=== PATIENT | female | born 1940 | race Caucasian/White ===

== ENCOUNTER 2021-12-23 11:08 | Inpatient (IN) ==
[2021-12-23] MEDS ORDERED: Iopamidol - 370 500 ML MLS IVP ONE (11:24)
[2021-12-23 11:53] LABS: Hematocrit 43.9 % (35.3-44.9); Hemoglobin 14.4 g/dL (11.5-15.4); Mean Corpuscular HGB Conc 32.8 g/dL (31.6-35.5); Mean Corpuscular Hemoglobin 30.3 pg (28.0-33.3); Mean Corpuscular Volume 92.2 fL (83.0-100.0); Mean Platelet Volume 10.6 fL (9.4-12.4); Platelet Count 210 K/mcL (140-400); Red Blood Count 4.76 M/mcL (3.82-4.97); Red Cell Distribution Width 14.6 % (11.5-14.5); White Blood Count 6.3 K/mcL (4.3-11.1)
[2021-12-23 12:00] LABS: Prothrombin Time 11.4 Seconds (9.4-12.1)
[2021-12-23 12:03] LABS: Activated Partial Thrombo Time 30.4 Seconds (26.0-36.0)
[2021-12-23 12:10] LABS: Albumin 3.9 g/dL (3.5-5.7); Albumin/Globulin Ratio 1.1 (1.1-2.2); Bilirubin,Direct 0.1 mg/dL (0.0-0.2); Bilirubin,Indirect 0.6 mg/dL (0.0-1.0); Bilirubin,Total 0.7 mg/dL (0.3-1.0); Globulin 3.4 g/dL (2.4-3.5); Total Protein 7.3 g/dL (6.4-8.9)
[2021-12-23 12:10] LABS: Bilirubin,Urine Negative (Negative); Blood,Urine Negative (Negative); Clarity,Urine Clear (Clear); Color,Urine Light-Yellow (Yellow); Glucose,Urine (UA) Normal (Normal); Ketones,Urine Negative (Negative); Leukocyte Esterase,Urine Negative (Negative); Nitrite,Urine Negative (Negative); PH,Urine 5.5 pH Units (5.0-8.0); Protein,Urine Negative (Neg-Trace); Specific Gravity,Urine 1.022 (1.010-1.025); Urobilinogen,Urine Normal (Normal)
[2021-12-23 12:11] LABS: BUN/Creatinine Ratio 18 (6-26); Blood Urea Nitrogen 16 mg/dL (8-23); Calcium 9.3 mg/dL (8.6-10.3); Carbon Dioxide 27 mEq/L (23-29); Chloride 108 mEq/L (98-107); Creatine Kinase 51 Units/L (30-223); Ethanol < 10 mg/dL (Less than 10); Glucose 91 mg/dL (70-105); Osmolality,Calculated 293 (280-300); Potassium 4.3 mEq/L (3.5-5.1); Sodium 141 mEq/L (136-145); Troponin I < 0.03 ng/mL (< 0.04); eGFR For African Americans > 60 (> 60); eGFR For Non-African Americans 59 (> 60)
[2021-12-23 12:17] LABS: Amphetamine Screen,Urine Negative ng/mL (Cutoff=1000); Barbiturate Screen,Urine Negative ng/mL (Cutoff=200); Benzodiazepines Screen,Urine Negative ng/mL (Cutoff=200); Cannabinoid Screen,Urine Negative ng/mL (Cutoff = 50); Cocaine Screen,Urine Negative ng/mL (Cutoff= 300); Opiate Screen,Urine Negative ng/mL (Cutoff=300); Phencyclidine Screen,Urine Negative ng/mL (Cutoff=25)
[2021-12-23] MEDS ORDERED: Perflutren Lipid Microsphere 1.3 ML in 0.9 % Sodium Chloride 8.7 ML IVP PRN (13:54)
[2021-12-23] MEDS ORDERED: Naloxone 0.4 MG/ML INJ IVP PRN (13:57)
[2021-12-23] MEDS ORDERED: Ondansetron 4 MG/2 ML VIAL IVP PRN (13:57)
[2021-12-23] MEDS ORDERED: Aspirin Enteric Coated 325 MG Tablet PO ONE (14:26)
[2021-12-24 06:45] LABS: Estimated Average Glucose 103 mg/dl; Hemoglobin A1C 5.2 %
[2021-12-24 06:49] LABS: Albumin 3.7 g/dL (3.5-5.7); Albumin/Globulin Ratio 1.4 (1.1-2.2); Bilirubin,Direct 0.1 mg/dL (0.0-0.2); Bilirubin,Indirect 0.5 mg/dL (0.0-1.0); Bilirubin,Total 0.6 mg/dL (0.3-1.0); Chol/HDL Ratio 2.6 (0-4.9); Globulin 2.7 g/dL (2.4-3.5); Total Protein 6.4 g/dL (6.4-8.9)
[2021-12-24 06:50] LABS: Magnesium 1.9 mg/dL (1.6-2.6); Phosphorous 3.5 mg/dL (2.7-4.5)
[2021-12-24 07:18] LABS: Folate 13.7 ng/mL (3.0-16.0)
[2021-12-24] MEDS: Aspirin Enteric Coated 81 MG Tablet PO SCH (08:51)
[2021-12-24] MEDS: *HR* Enoxaparin 40 MG/0.4 ML SYRINGE SQ SCH (08:52)
[2021-12-24] MEDS ORDERED: *HR* LORazepam 2 MG/ML VIAL IVP PRN (09:35)
[2021-12-24] MEDS ORDERED: Cyanocobalamin (B-12) 1,000 MCG/ML VIAL IM ONE (12:56)
[2021-12-25] MEDS ORDERED: Cyanocobalamin (B-12) 1,000 MCG TABLET PO SCH (09:00)
[2021-12-25] MEDS: *HR* Enoxaparin 40 MG/0.4 ML SYRINGE SQ SCH (09:09)
[2021-12-25] MEDS: Aspirin Enteric Coated 81 MG Tablet PO SCH (09:09)
[2021-12-25] MEDS: lisinopriL 20 MG TABLET PO SCH (11:43)
[2021-12-26] MEDS: lisinopriL 20 MG TABLET PO SCH (08:02)
[2021-12-26] MEDS: Cyanocobalamin (B-12) 1,000 MCG TABLET PO SCH (08:03)
[2021-12-26] MEDS: *HR* Enoxaparin 40 MG/0.4 ML SYRINGE SQ SCH (08:03)
[2021-12-26] MEDS: Aspirin Enteric Coated 81 MG Tablet PO SCH (08:03)
[2021-12-26] MEDS: Acetaminophen 325 MG TABLET PO PRN (22:28)
[2021-12-27] MEDS: lisinopriL 20 MG TABLET PO SCH (07:35)
[2021-12-27] MEDS: Aspirin Enteric Coated 81 MG Tablet PO SCH (07:35)
[2021-12-27] MEDS: *HR* Enoxaparin 40 MG/0.4 ML SYRINGE SQ SCH (07:35)
[2021-12-27] MEDS: Cyanocobalamin (B-12) 1,000 MCG TABLET PO SCH (07:35)
[2021-12-28] MEDS: Acetaminophen 325 MG TABLET PO PRN (04:32)
[2021-12-28 07:03] VITALS: BP 135/80; PULSE 75; TEMP 97.8; O2SAT 96
[2021-12-28] MEDS: lisinopriL 20 MG TABLET PO SCH (07:16)
[2021-12-28] MEDS: Cyanocobalamin (B-12) 1,000 MCG TABLET PO SCH (07:16)
[2021-12-28] MEDS: *HR* Enoxaparin 40 MG/0.4 ML SYRINGE SQ SCH (07:16)
[2021-12-28] MEDS: Aspirin Enteric Coated 81 MG Tablet PO SCH (07:16)
[2021-12-28 10:28] LABS: Influenza A PCR Negative (Negative); Influenza B PCR Negative (Negative); Resp. Syncytial Virus PCR Negative (Negative); SARS-CoV-2 by PCR (In House) Negative (Negative)
== END 2021-12-28 16:13 | DRG 71 ==
LOC: EMEROOARM 11:08 → 3BNU 11:08 → SUATTDRO 14:17 → 3BNU 16:00
PROVIDERS: ADMIT Student in an Organized Health Care Education/Training Program; ATTEND Internal Medicine

== ENCOUNTER 2022-03-06 09:00 | Observation (INO) ==
[2022-03-06 09:36] LABS: Basophils % 0.2 %; Eosinophils # 0.2 K/mcL (0.0-0.6); Eosinophils % 2.8 %; Hematocrit 41.1 % (35.3-44.9); Hemoglobin 13.7 g/dL (11.5-15.4); Immature Granulocytes % 0.4 % (0-4); Lymphocytes # 2.4 K/mcL (0.6-4.6); Lymphocytes % 28.4 %; Mean Corpuscular HGB Conc 33.3 g/dL (31.6-35.5); Mean Corpuscular Hemoglobin 29.8 pg (28.0-33.3); Mean Corpuscular Volume 89.5 fL (83.0-100.0); Mean Platelet Volume 10.8 fL (9.4-12.4); Monocytes # 0.8 K/mcL (0.0-1.3); Monocytes % 9.5 %; Platelet Count 228 K/mcL (140-400); Red Blood Count 4.59 M/mcL (3.82-4.97); Red Cell Distribution Width 15.6 % (11.5-14.5); Segmented Neutrophils % 58.7 %; White Blood Count 8.6 K/mcL (4.3-11.1)
[2022-03-06 09:45] LABS: INR 1.1; Prothrombin Time 11.9 Seconds (9.4-12.1)
[2022-03-06 09:47] LABS: Activated Partial Thrombo Time 27.2 Seconds (26.0-36.0)
[2022-03-06 10:26] LABS: Alanine Aminotransferase 19 Units/L (7-52); Albumin 3.8 g/dL (3.5-5.7); Albumin/Globulin Ratio 1.2 (1.1-2.2); Alkaline Phosphatase 90 Units/L (34-104); Aspartate Amino Transferase 20 Units/L (13-39); BUN/Creatinine Ratio 15 (6-26); Bilirubin,Direct 0.2 mg/dL (0.0-0.2); Bilirubin,Indirect 0.7 mg/dL (0.0-1.0); Bilirubin,Total 0.9 mg/dL (0.3-1.0); Blood Urea Nitrogen 13 mg/dL (8-23); Calcium 9.2 mg/dL (8.6-10.3); Carbon Dioxide 25 mEq/L (23-29); Chloride 106 mEq/L (98-107); Creatine Kinase 51 Units/L (30-223); Ethanol < 10 mg/dL (Less than 10); Globulin 3.3 g/dL (2.4-3.5); Glucose 93 mg/dL (70-105); Osmolality,Calculated 286 (280-300); Potassium 3.9 mEq/L (3.5-5.1); Sodium 138 mEq/L (136-145); Total Protein 7.1 g/dL (6.4-8.9); Troponin I < 0.03 ng/mL (< 0.04)
[2022-03-06] MEDS ORDERED: Iopamidol - 370 500 ML MLS IVP ONE (10:27)
[2022-03-06] MEDS: 0.9 % Sodium Chloride 1,000 ML IVC SCH ×2 (10:35→19:05)
[2022-03-06 12:19] LABS: Bilirubin,Urine Negative (Negative); Blood,Urine Negative (Negative); Clarity,Urine Clear (Clear); Color,Urine Colorless (Yellow); Glucose,Urine (UA) Normal (Normal); Ketones,Urine Negative (Negative); Leukocyte Esterase,Urine Negative (Negative); Nitrite,Urine Negative (Negative); Protein,Urine Negative (Neg-Trace); Specific Gravity,Urine > 1.030 (1.010-1.025); Urobilinogen,Urine Normal (Normal)
[2022-03-06 13:31] LABS: Amphetamine Screen,Urine Negative ng/mL (Cutoff=1000); Barbiturate Screen,Urine Negative ng/mL (Cutoff=200); Benzodiazepines Screen,Urine Negative ng/mL (Cutoff=200); Cannabinoid Screen,Urine Negative ng/mL (Cutoff = 50); Cocaine Screen,Urine Negative ng/mL (Cutoff= 300); Opiate Screen,Urine Negative ng/mL (Cutoff=300); Phencyclidine Screen,Urine Negative ng/mL (Cutoff=25)
[2022-03-06] MEDS ORDERED: Naloxone 0.4 MG/ML INJ IVP PRN (13:43)
[2022-03-06 14:46] LABS: Folate 13.3 ng/mL (3.0-16.0)
[2022-03-06] MEDS: Aspirin Enteric Coated 81 MG Tablet PO SCH (15:40)
[2022-03-06] MEDS: *HR* Heparin 5,000 UNIT/ML VIAL SQ SCH (19:04)
[2022-03-07] MEDS: 0.9 % Sodium Chloride 1,000 ML IVC SCH (02:40)
[2022-03-07] MEDS: *HR* Heparin 5,000 UNIT/ML VIAL SQ SCH (06:35)
[2022-03-07] MEDS: Aspirin Enteric Coated 81 MG Tablet PO SCH (08:07)
[2022-03-07 11:45] VITALS: BP 135/83; PULSE 70; TEMP 97.9; O2SAT 98
[2022-03-07 12:29] LABS: Estimated Average Glucose 108 mg/dl; Hemoglobin A1C 5.4 %
== END 2022-03-07 12:41 | disposition home or self-care (01) ==
LOC: 3BNU 09:00 → EMEROOARM 09:00 → SUATTDRO 15:52 → 3BNU 17:45
PROVIDERS: ADMIT General Practice; ATTEND Internal Medicine

== ENCOUNTER 2022-03-27 08:20 | Inpatient (IN) ==
[2022-03-27] MEDS ORDERED: Ondansetron ODT 4 MG TAB.RAPDIS SL ONE (09:30)
[2022-03-27 10:18] LABS: Bilirubin,Urine Negative (Negative); Blood,Urine Negative (Negative); Clarity,Urine Clear (Clear); Color,Urine Light-Yellow (Yellow); Glucose,Urine (UA) Normal (Normal); Ketones,Urine 10 mg/dL (Negative); Leukocyte Esterase,Urine Negative (Negative); Nitrite,Urine Negative (Negative); Protein,Urine Trace mg/dL (Neg-Trace); Specific Gravity,Urine 1.019 (1.010-1.025); Urobilinogen,Urine Normal (Normal)
[2022-03-27 10:19] LABS: Basophils % 0.4 %; Eosinophils # 0.1 K/mcL (0.0-0.6); Eosinophils % 1.3 %; Hematocrit 44.7 % (35.3-44.9); Hemoglobin 14.4 g/dL (11.5-15.4); Immature Granulocytes % 0.3 % (0-4); Lymphocytes # 1.2 K/mcL (0.6-4.6); Lymphocytes % 14.8 %; Mean Corpuscular HGB Conc 32.2 g/dL (31.6-35.5); Mean Corpuscular Hemoglobin 29.3 pg (28.0-33.3); Monocytes # 0.6 K/mcL (0.0-1.3); Monocytes % 7.2 %; Platelet Count 223 K/mcL (140-400); Red Blood Count 4.91 M/mcL (3.82-4.97); Red Cell Distribution Width 15.5 % (11.5-14.5); White Blood Count 7.9 K/mcL (4.3-11.1)
[2022-03-27 10:38] LABS: Calcium 9.5 mg/dL (8.6-10.3); Potassium 4.5 mEq/L (3.5-5.1)
[2022-03-27] MEDS ORDERED: Acetaminophen 325 MG TABLET PO PRN (12:46)
[2022-03-27] MEDS ORDERED: Naloxone 0.4 MG/ML INJ IVP PRN (12:46)
[2022-03-27] MEDS ORDERED: Melatonin 3 MG TABLET PO PRN (12:46)
[2022-03-27] MEDS: 0.9 % Sodium Chloride 1,000 ML IVC SCH (15:53)
[2022-03-27] MEDS: Ondansetron ODT 4 MG TAB.RAPDIS SL PRN (15:53)
[2022-03-27] MEDS: *HR* Heparin 5,000 UNIT/ML VIAL SQ SCH ×2 (15:56→19:56)
[2022-03-28 03:27] LABS: Basophils % 0.3 %; Eosinophils # 0.1 K/mcL (0.0-0.6); Eosinophils % 1.8 %; Hematocrit 41.6 % (35.3-44.9); Hemoglobin 13.5 g/dL (11.5-15.4); Immature Granulocytes % 0.2 % (0-4); Lymphocytes % 32.7 %; Mean Corpuscular HGB Conc 32.5 g/dL (31.6-35.5); Mean Corpuscular Hemoglobin 29.4 pg (28.0-33.3); Mean Corpuscular Volume 90.6 fL (83.0-100.0); Mean Platelet Volume 11.2 fL (9.4-12.4); Monocytes # 0.7 K/mcL (0.0-1.3); Neutrophils # 3.4 K/mcL (1.6-8.9); Platelet Count 231 K/mcL (140-400); Red Blood Count 4.59 M/mcL (3.82-4.97); Red Cell Distribution Width 15.5 % (11.5-14.5); White Blood Count 6.2 K/mcL (4.3-11.1)
[2022-03-28 03:47] LABS: Calcium 8.9 mg/dL (8.6-10.3); Magnesium 2.1 mg/dL (1.6-2.6); Potassium 3.9 mEq/L (3.5-5.1)
[2022-03-28] MEDS: 0.9 % Sodium Chloride 1,000 ML IVC SCH (05:37)
[2022-03-28] MEDS: *HR* Heparin 5,000 UNIT/ML VIAL SQ SCH ×3 (05:38→20:23)
[2022-03-28] MEDS: lisinopriL 20 MG TABLET PO SCH (09:39)
[2022-03-28] MEDS: Multivit/Ca/Min/Fe/FA 1 TAB TABLET PO SCH (09:39)
[2022-03-28] MEDS: Aspirin Enteric Coated 81 MG Tablet PO SCH (09:39)
[2022-03-28] MEDS: Ondansetron ODT 4 MG TAB.RAPDIS SL PRN (11:33)
[2022-03-29] MEDS: *HR* Heparin 5,000 UNIT/ML VIAL SQ SCH ×2 (07:01→13:58)
[2022-03-29 07:19] VITALS: BP 125/63; PULSE 65; TEMP 97.8; O2SAT 94
[2022-03-29] MEDS: Aspirin Enteric Coated 81 MG Tablet PO SCH (10:20)
[2022-03-29] MEDS: lisinopriL 20 MG TABLET PO SCH (10:20)
[2022-03-29] MEDS: Multivit/Ca/Min/Fe/FA 1 TAB TABLET PO SCH (10:20)
== END 2022-03-29 15:03 | disposition home health service (06) | DRG 312 ==
LOC: EMEROOARM 08:20 → 3ANU 08:20 → SUATTDRO 12:50 → 3ANU 14:04
PROVIDERS: ADMIT Hospitalist; ATTEND Family Medicine